=== PATIENT | female | born 1945 | race Two or more races ===

== ENCOUNTER 2024-07-24 10:43 | Emergency (ER) | payer OTHER ==
[~2024-07-24] VITALS: Ht 160 cm; Wt 70.3 kg
[2024-07-24] MEDS ORDERED: SIMVASTATIN5 MG (12:11)
[2024-07-24] MEDS ORDERED: LOSARTAN POTASS25 MG (12:11)
[2024-07-24] MEDS ORDERED: ELIQUIS2.5 MG (12:11)
[2024-07-24] MEDS ORDERED: ZOLOFT25 MG (12:11)
[2024-07-24] MEDS ORDERED: KETOROLAC TROMETHAMINE 60 MG VIAL IM ONE (13:30)
[2024-07-24] MEDS ORDERED: KETO10TA2 PO (16:01)
== END 2024-07-24 16:27 | disposition home or self-care (01) ==
LOC: ER 10:45
DX: S52.592A Other fractures of lower end of left radius, initial encounter for closed fracture (principal); S50.12XA Contusion of left forearm, initial encounter; W18.39XA Other fall on same level, initial encounter; Y93.89 Activity, other specified; Y92.018 Other place in single-family (private) house as the place of occurrence of the external cause; F03.90 Unspecified dementia, unspecified severity, without behavioral disturbance, psychotic disturbance, mood disturbance, and anxiety; E78.00 Pure hypercholesterolemia, unspecified; I10 Essential (primary) hypertension; Z85.038 Personal history of other malignant neoplasm of large intestine; Z91.013 Allergy to seafood
CPT/HCPCS: 73090; 73130; 96372; 99283; J1885